=== PATIENT | female | born 1940 | race Caucasian/White ===

== ENCOUNTER → 2016-11-23 | Outpatient (CLI) | payer OTHER ==
[~2016-11-23] MED LIST: CALCIUM 500 +1 EAC4 PO; DICLOFENAC SODI75 M1 PO; DOCUSATE SODIU100 MG PO; FISH OIL 1,0001 EAC5 PO; MICARDIS HCT 81 EACH PO; MINOCYCLINE HC100 M2 PO; MULTIVITAMINS PO; NEXIUM40 MG PO; SENOKOT-S1 TA2 PO; SIMVASTATIN80 MG PO
== END ==
LOC: RAD 03:14
DX: Z12.31 Encounter for screening mammogram for malignant neoplasm of breast (principal)

== ENCOUNTER → 2018-11-29 | Outpatient (CLI) | payer OTHER | LOC: RAD 10:11 | DX: Z12.31 Encounter for screening mammogram for malignant neoplasm of breast (principal) ==

== ENCOUNTER 2020-09-26 14:21 | Emergency (ER) | payer OTHER ==
[~2020-09-26] VITALS: Ht 154.9 cm; Wt 56.7 kg
[2020-09-26 14:48] LABS: ABSOLUTE NEUTROPHILS 4.5 thou/uL (1.4-8.2); EOSINOPHILS 1.3 % (0.0-3.0); HEMATOCRIT 34.2 % (37.0-47.0); HEMOGLOBIN 11.1 gm/dL (12.0-15.0); LYMPHOCYTES 24.1 % (24.0-44.0); MCH 32.9 pg (26.0-34.0); MCHC 32.6 g/dL (28.0-37.0); MCV 101.1 fL (80.0-100.0); POLYS 68.6 % (36.0-66.0); RBC 3.38 mil/uL (4.20-5.00); RDW 12.7 % (10.5-14.5); WBC 6.5 thou/uL (4.0-11.0)
[2020-09-26 14:54] LABS: CALCIUM 9.8 mg/dL (8.5-10.1); CREATININE 1.5 mg/dL (0.6-1.0); POTASSIUM 4.3 mmol/L (3.5-5.1)
[2020-09-26 15:01] LABS: ALBUMIN 3.2 g/dL (3.4-5.0); TOTAL BILIRUBIN 0.7 mg/dL (0.2-1.0); TOTAL PROTEIN 6.3 g/dL (6.4-8.2)
[2020-09-26 15:41] LABS: LARGE PLATELETS OCCASIONAL
[2020-09-26 15:45] LABS: PLATELET COUNT 189 thou/uL (150-400)
[2020-09-26 15:48] VITALS: BP 164/69
[2020-09-26] MEDS ORDERED: PROTONIX40 MG PO (15:59)
== END 2020-09-26 16:20 ==
LOC: ER 14:21
PROVIDERS: Emergency Medicine
DX: K27.9 Peptic ulcer, site unspecified, unspecified as acute or chronic, without hemorrhage or perforation (principal); I10 Essential (primary) hypertension; E78.5 Hyperlipidemia, unspecified; Z79.899 Other long term (current) drug therapy

== ENCOUNTER 2020-10-23 11:52 | Emergency (ER) | payer OTHER ==
[~2020-10-23] VITALS: Ht 154.9 cm; Wt 54.4 kg
[~2020-10-23 11:52] MED LIST changes: +PROTONIX40 MG PO
[2020-10-23 12:52] LABS: URINE BILIRUBIN NEGATIVE (Negative); URINE BLOOD NEGATIVE (Negative); URINE CLARITY CLEAR; URINE COLOR YELLOW; URINE GLUCOSE-RANDOM* NEGATIVE (Negative); URINE KETONES TRACE (Negative); URINE LEUKOCYTES-REFLEX TRACE (Negative); URINE NITRITE-REFLEX POSITIVE (Negative); URINE PROTEIN (DIPSTICK) TRACE (Negative); URINE SPECIFIC GRAVITY >= 1.030 (1.005-1.035); URINE UROBILINOGEN 0.2 E.U./dl (0.2-1.0)
[2020-10-23 12:53] LABS: ABSOLUTE NEUTROPHILS 2.2 thou/uL (1.4-8.2); BASOPHILS 1.3 % (0.0-2.0); EOSINOPHILS 1.4 % (0.0-3.0); HEMOGLOBIN 10.6 gm/dL (12.0-15.0); LYMPHOCYTES 29.5 % (24.0-44.0); MONOCYTES 6.5 % (1.0-8.0); POLYS 61.3 % (36.0-66.0); RDW 12.7 % (10.5-14.5); WBC 3.5 thou/uL (4.0-11.0)
[2020-10-23 13:00] LABS: CALCIUM 9.5 mg/dL (8.5-10.1); CREATININE 1.7 mg/dL (0.6-1.0); POTASSIUM 3.3 mmol/L (3.5-5.1)
[2020-10-23 13:06] LABS: MAGNESIUM 1.3 mg/dL (1.8-2.4); TOTAL BILIRUBIN 0.8 mg/dL (0.2-1.0); TOTAL PROTEIN 5.7 g/dL (6.4-8.2)
[2020-10-23 13:09] LABS: CRYSTALS None Seen /LPF (None Seen); HYALINE CASTS 4-10 Moderate /LPF (None Seen); SQUAMOUS 0-3 Few /LPF (0-3); URINE RBC 0-2 Rare /HPF (0-2); URINE WBC-REFLEX 6-15 Few /HPF (0-5)
[2020-10-23 13:10] LABS: WBC CLUMPS Few (None Seen)
[2020-10-23 13:23] LABS: LARGE PLATELETS SEVERAL; PLATELET COUNT 125 thou/uL (150-400); PLATELET ESTIMATE SLIGHTLY DECREASED
[2020-10-23] MEDS ORDERED: CARBIDOPA-LEVO1 EAC9 PO (17:33)
[2020-10-23] MEDS ORDERED: CARBIDOPA-LEVO1 EAC7 PO (17:33)
[2020-10-23] MEDS ORDERED: PROTONIX40 M4 PO (17:35)
[2020-10-23] MEDS ORDERED: ASA81BEC PO (17:36)
[2020-10-23 20:12] VITALS: BP 128/75
[2020-10-23] MEDS ORDERED: VOLTAREN100 GM PO (21:19)
--- NOTE | 2020-10-26 07:16 | EKG ---
[address] [place] [address] ELECTROCARDIOGRAM REPORT Name: YELITZA DAVIS [id number] Admission: 10/23/20 Attend Phys: Discharge: 10/23/20 Date of : 44 Report #: [id number] [facility] ED Test Date: 2020-10-23 Test Time: 14:04:42 Pat Name: YELITZA DAVIS Department: Room: Gender: F Supervisor [employer] Processing: : 1940 Requested By: Maya Mejias Order Number: [id number] MD: Getachew Oh Measurements Intervals [place] Rate: 78 P: 61 VT: 137 QRS: -16 QRSD: 99 T: 73 QT: 401 QTc: 457 Interpretive Statements Sinus rhythm Probable left atrial enlargement Borderline left axis deviation No previous ECG available for comparison Electronically Signed On 10-26-2020 7:16:02 CDT by Getachew Oh [email or web address] <ELECTRONICALLY SIGNED> By: Getachew Oh MD, [facility] 10/26/20 0716 1404 1404 Getachew Oh MD, FACC /EPI
== END 2020-10-23 20:12 ==
LOC: ER 11:52
PROVIDERS: Nurse Practitioner Family
DX: N39.0 Urinary tract infection, site not specified (principal); F32.9 Major depressive disorder, single episode, unspecified; E87.6 Hypokalemia; E83.42 Hypomagnesemia; I10 Essential (primary) hypertension; E78.5 Hyperlipidemia, unspecified; Z79.899 Other long term (current) drug therapy; Z79.82 Long term (current) use of aspirin; Z20.822 Contact with and (suspected) exposure to COVID-19

== ENCOUNTER 2020-10-23 20:32 | Inpatient (IN) | payer OTHER ==
[~2020-10-23] VITALS: Ht 154.9 cm; Wt 57.7 kg
[2020-10-23 20:30] VITALS: BP 110/67
[~2020-10-23 20:32] MED LIST changes: +ASA81BEC PO; +CARBIDOPA-LEVO1 EAC7 PO; +CARBIDOPA-LEVO1 EAC9 PO; +PROTONIX40 M4 PO
[2020-10-23] MEDS ORDERED: VOLTAREN100 GM PO (21:19)
--- NOTE | 2020-10-23 23:40 | NUR ---
ADMITTED FROM ED. PT LIVES ALONE IN [facility] AT [facility]. PTS SISTER REPORTED PT HAS BEEN HAVING INCREASED PROBLEMS WITH MEMORY. PT FOUND TO HAVE UTI, LOW POTTASIUM AND LOW MAGNESIUM. RECEIVED IV ANTIBIOTIC, FLUIDS, REPLACEMENT IN ED. PT PRESENTED TO UNIT. AOX4. GLASSES ON, WATCH ON. HAIR UNKEMPT. UNSTEADY GAIT. MED HX PARKINSONS, ARTHRITIS, DEPRESSION. PT HAD FOOD IN ED, DECLINED HS SNACK. PT COMPLIANT WITH MEDICATIONS. GOOD EYE CONTACT FLAT AFFECT. PT REPORTED HX OF SUICIDAL IDEATION WHEN SHE WAS IN HER 30'S. PT DENIES CURRENT SI. DR MURRAY CONTACTED RE ADMISSION. HOSPITALIST CONSULTED WITH PT. BED ALARM ON.
[2020-10-24 05:42] LABS: CALCIUM 9.3 mg/dL (8.5-10.1); CREATININE 1.3 mg/dL (0.6-1.0); POTASSIUM 3.7 mmol/L (3.5-5.1)
[2020-10-24 08:00] VITALS: BP 129/67
--- NOTE | 2020-10-24 08:54 | NUR ---
PT SITTING OUT IN DINING ROOM PICKING AT HER FOOD. PT MAKING CONVERSATION WITH ANOTHER PEER. PT DENIES ANY PAIN. PT TOOK MEDS THIS AM WITHOUT ANY ISSUES. NO SI IDEATION AT THIS TIME. PT UP WITH ASSISTANCE DUE TO UNSTEADY GAIT. PT IS CALM AND COOROPERATIVE WITH STAFF.
[2020-10-24 09:19] VITALS: BP 129/67
--- NOTE | 2020-10-24 11:24 | NUR ---
SHE CAME TO R.T. THIS MORNING. SHE SAT ON THE PERIPHERAL OF THE GROUP BUT LISTENED AND WAS COOPERATIVE. SHE WAS NOT DISRUPTIVE AT ALL. SHE IS NEW TO THE [facility].
[2020-10-24 12:06] LABS: FOLIC ACID 31.3 ng/mL (8.6-58.9)
--- NOTE | 2020-10-24 16:18 | NUR ---
Patient assessment was completed with patient and doctor. Treatment plan completed.
--- NOTE | 2020-10-24 18:00 | NUR ---
PT HAS A GOOD DAY TODAY. PT HAS SPOKEN TO FAMILY ON THE PHONE. PT PARTICIPATING IN GROUP AND EATING MEALS.
[2020-10-24 19:00] VITALS: BP 106/66
[2020-10-25 00:10] VITALS: BP 129/67
--- NOTE | 2020-10-25 00:17 | NUR ---
Assumed care on 10/24/20 @ 1900, seated in the day room by herself at a table watching TV. A&Ox3, could not give the date or day of the week, but knew the year and month. Flat affect noted. Compliant with medication administration, taking p.o. meds whole with water. Retired to bed @ HS. Bed in low position.
[2020-10-25 08:30] VITALS: BP 157/77
--- NOTE | 2020-10-25 08:41 | NUR ---
PT OUT IN DINING ROOM EATING BREAKFAST. PT DID EAT SOME EGGS AND A BITE OF [place] TOAST. PT TOOK MEDS THIS AM WITH WATER. PT STATED SHE JUST WANTS TO REST TODAY. PT IS SOCIAL WITH OTHER PEERS AND STAFF WHEN SPOKEN TOO.
[2020-10-25 09:02] VITALS: BP 157/77
--- NOTE | 2020-10-25 09:55 | NUR ---
TALKED TO SISTER GAMA ON THE PHONE. SHE STATED THAT THERE IS DEPRESSION IN BOTH SIDES OF THE FAMILY. SHE SAID THAT YELITZA IS TEARFUL WHEN THEY TALK ON THE PHONE. SHE MENTIONED THAT SHE TAKES EFFEXOR AND IT HELPS WITH HER DEPRESSION. SHE IS BRINGING IN SWEATERS FOR HER TO WEAR AND A HOME MEDICATION THAT WAS NOT ON THE MED REC. SHE ALSO SAID WHEN HER SISTER IS DISCHARGED SHE HAS 24 HOUR CARE FROM AN INDIVIDUAL NAMED ALFONSO JUAREZ.
[2020-10-25] MEDS ORDERED: [UNRECOGNIZED DRUG - OTHER] PO (12:53)
--- NOTE | 2020-10-25 13:30 | NUR ---
GAMA DROPPED OFF A COUPLE OF SHIRTS AND DPOA PAPERWORK, NOW IN THE CHART.
[2020-10-25 19:52] VITALS: BP 129/71
[2020-10-26 00:03] VITALS: BP 129/71
--- NOTE | 2020-10-26 00:27 | NUR ---
Assumed care on 10/25/20 @ 1900, ambulating the hallways with a walker and sitting on a couch in the day room watching TV and socializing with female peers. Received a phone call from friend, which she elected to return. Cooperative with assessment and compliant with medications. HRRR, Lungs CTA bilat, ABD N bowel sounds, BM today 10/25. A&Ox3, not able to give the date, but knew the month. Retired to bed @ HS, eyes closed respirations even and unlabored. Bed in low position.
[2020-10-26 09:21] VITALS: BP 140/79
[2020-10-26 10:12] VITALS: BP 140/79
[2020-10-26 10:23] LABS: HEMATOCRIT 34.3 % (37.0-47.0); HEMOGLOBIN 11.4 gm/dL (12.0-15.0); MCH 33.2 pg (26.0-34.0); MCHC 33.2 g/dL (28.0-37.0); MCV 100.2 fL (80.0-100.0); RBC 3.43 mil/uL (4.20-5.00); RDW 13.2 % (10.5-14.5); WBC 4.8 thou/uL (4.0-11.0)
--- NOTE | 2020-10-26 11:35 | NUR ---
Assess due to new admit to [facility] for depression and UTI. On regular diet eating 75-100% meals. No reports of wt loss, BMI adequate. Labs/meds reviewed, and pt is low nutrition risk
--- NOTE | 2020-10-26 13:43 | NUR ---
PATIENT CARE ASSUMED 0700 - PATIENT IN DINING [place]COSTA - RESPONSIVE TO QUESTIONS ADDRESSED TO HER. DENIES ANY S/I OR H/I - PLEASANT - COOPERATIVE. NO PAIN DISCOMFORT WHEN ASSESSED. MAKES NEEDS KNOWN. GOOD APPETITE 50 PERCENT OF MEALS. ALERT AND ORIENTED X 3 - AFFECT BLUNTED AND FLAT AT TIMES BUT DID SMILE WHEN COMPLIMENT GIVEN ON HAIR. VITALS HAS BEEN STABLE. MEDICATION COMPLIANT - TAKES PILLS WITH NO DIFFICULTY. PARTICIPATED IN MORNING GROUP AND AFTERNOON ACTIVITIES. UP IN DINING ACOSTA MOST OF THE DAY.
[2020-10-26 18:06] LABS: SYPHILIS AB Non Reactive (Non Reactive)
[2020-10-26 19:30] VITALS: BP 107/69
[2020-10-26 20:20] VITALS: BP 107/69
--- NOTE | 2020-10-27 03:10 | NUR ---
PATIENT WAS SITTING ALONE IN DINING ROOM AND QUIET AND WITHDRAWN THIS EVENING. SHE BEGAN CRYING WHEN ANOTHER PATIENT BEGAN YELLING OUT IN THE DINING ROOM. I BELIEVE THIS MADE HER ANXIOUS. SHE BEGAN CRYING AND SAID SHE WANTED TO GO HOME TONIGHT. SHE STATED SHE WANTED TO TALK TO HER FAMILY AND I ASKED HER IF I COULD CALL SOMEONE AND SHE STATES, "THEY ARE ALL ." SHE STATES HER SISTER IS ALIVE BUT DIDN'T WISH TO TALK WITH HER. PT CRIED SOFTLY IN BED BUT CALMED WITH 1:1 INTERACTION AND CONSOLING. PATIENT A/0X3. PATIENT TOOK HER MEDS WHOLE WITH WATER. NO SI/HI/AVH AT THIS TIME BUT IS DEPRESSED. PATIENT DENIES PAIN. PT AMBULATES WITH STEADY GAIT. ROUTINE ROUNDS TO ASSESS SAFETY AND STATUS OF PATIENT. BED IN LOW POSITION.
[2020-10-27 09:30] VITALS: BP 148/73
--- NOTE | 2020-10-27 10:23 | NUR ---
0700 ASSUMED CARE OF PATIENT, PATIENT IN BED AT THAT TIME. PATIENT TO DAYROOM FOR BREAKFAST. DOES NO EAT ANY BREAKFAST STATES "DOES NOT LIKE THE FOOD". MEDICATION TAKEN WHOLE WITHOUT DIFFICULTY. PATIENT IS QUIET WITH FLAT AFFECT. APPERARS TO BE SAD AT THAT TIME. PATIENT PRESENT IN GROUP. 1000 SPOKE WITH PATIENT, PATIENT QUIET AND SOFT SPOKEN. NO C/O PAIN. BS ACTIVE. VS 148/73, 78, 16, 97.1, 96%. PATIENT DENIES SI. WHEN ASKED ABOUT HALLUCINATIONS PATIENT STATES "WELL I SAW THE THING THIS MORNING" PATIENT UNABLE TO EXPLAIN THE THING AND LATER SAYS "SOMEONE HAD TO HAVE BEEN IN MY ROOM THERE WAS PEE ON THE FLOOR, I DID NOT SEE WHO DID IT". PATIENT CONFUSED AND DOES NOT MAKE SENSE WHEN EXPLAINING WHAT SHE SAW OR DID NOT SEE. PATIENT C/O INCREASED ANXIET AND DEPRESSION STATING "IF I CAN LEAVE TO A FAMILIAR PLACE I WOULD NOT BE DEPRESSED OR ANY ANXIETY". PATIENT TEARY-EYED WHEN TALKING ABOUT LEAVING AND WANTING TO GO WHERE HER SISTER IS SETTING UP A HOME FOR HER. STATES "MY SISTER IS HERE VISITING AND GETTING MY PLACE READY, I JUST HAVE NO IDEA WHEN IM LEAVING". WILL CONTINUE TO OBSERVE
--- NOTE | 2020-10-27 14:15 | NUR ---
Yesterday, YONNY and Dr. Pollard spoke with pt's daughter and DPOA Jessie Borjas ([phone]). [place] wanted [place] back [place] and said that pt will have staff to care for her 13/02 beginning the . YONNY explained that pt cannot be released to an unsafe environment and she is not safe in an [place]; YONNY suggested respite care. Jessie is of the opinion that pt can be skilled. Dr. Pollard said he will have pt assessed for skillable criteria. Today Jessie contacted YONNY and asked she send a referral to [facility] for respite. YONNY faxed a referral to [facility] for respite care. YONNY team will continue to follow pt during her stay on this unit.
[2020-10-27 19:11] VITALS: BP 120/63
[2020-10-27 19:30] VITALS: BP 120/63
--- NOTE | 2020-10-27 19:39 | H ---
[facility] [place] [address] HISTORY AND PHYSICAL Name: YELITZA DAVIS Room #: 525B-B ADM IN M.R.#: [id number] Admission: 10/23/20 Attend Phys: Sarabjit Pollard DO Discharge: Date of : 44 Report #: [id number] THIS REPORT FOR: cc: Venancio Lee MD, Eric K. MD Kerstein,Sarabjit Alejandra DO ~ DATE OF SERVICE: 10/24/2020 INPATIENT PSYCHIATRIC EVALUATION ATTENDING PSYCHIATRIST: Sarabjit Pollard DO. MEDICAL CONSULTANTS: Dr. Amber Mendez and Dennys Howard MD and his hospitalist team. REASON FOR ADMISSION: Depression and cognitive evaluation. SOURCES OF INFORMATION: Interview with the sister in the Emergency Room, her name is Lyudmila, interview with the patient in my office, ER records and chart review. HISTORY OF PRESENT ILLNESS: This is a 80-year-old female, for approximately 13 years. She presented with the ED at the begging of her sister and [id number]. They stated that the patient was coming up with weird stuff when she talks. She denied SI, auditory or visual hallucinations. She endorses intermittent abdominal pain, shortness of air with exertion. The sister was concerned about her mental status and physical health. Her sister lives in [place] and flew to town to visit her. Over the 2 weeks prior to ER presentation, her phone conversations have seemed different than in the past. A lot of what the patient tells is confusing and sometimes she does not make sense. In the past several months, she has lost a lot of weight. Recently, she is not eating or drinking as much. She has her meals prepared and brought to her. She reportedly had an EGD and a colonoscopy 2 days ago, which was read as normal. The ED found urinalysis concerning for UTI. Mag was low at 1.3, potassium 3.3, BUN 27, creatinine 1.7. She did receive fluids in the ER. CT of head shows no acute intracranial abnormalities. The patient resides in independent living at [facility]. She has been affected by the events of the pandemic the last year. Apparently, she had her second COVID vaccine around the time symptoms started. PAST MEDICAL HISTORY: Includes hypertension and high cholesterol. She has history of a Staph infection, was on oral antibiotics last in fall 2008, arthritis, breast biopsies x 2. PAST SURGICAL HISTORY: Bilateral carpal tunnel release and tonsillectomy. [facility] [address] [place] [address] HISTORY AND PHYSICAL Name: YELITZA DAVIS Room #: 525B-B [facility] IN ..#: [id number] Admission: 10/23/20 Attend Phys: Sarabjit Pollard, DO Discharge: Date of : 44 Report #: [id number] MEDICATIONS: Telmisartan/hydrochlorothiazide 80/12.5 one each daily, simvastatin 80 mg p.o. at bedtime, multivitamin p.o. daily, senna docusate 1 tab p.o. daily, omega 3 fish oil 6000 p.o. b.i.d., carbidopa/levodopa 25/100 one tablet 4 times a day and 50/200 p.o. at bedtime, pantoprazole 40 mg p.o. daily, aspirin 81 mg oral daily. ALLERGIES: No known allergies. SOCIAL HISTORY: Denied tobacco, alcohol or recreational drug use. DEVELOPMENTAL HISTORY: Born in [place], [place], raised in the same area. She has had several siblings. Denies history of dementia in the family. 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 A 10-point ER review of systems was negative except for the weight loss and confusion. The patient received a [facility] Mental Status examination, she scored 7/30. Deficits were grossly deficient in memory, executive function, verbal fluency and speech were relatively preserved. Weight 54.43 kilos. LABORATORY DATA: EKG showed normal sinus rhythm, rate of 78, no STEMI, leftward axis, AR interval is 137, QTc 457. Geriatric depression scale was administered. The patient scored a +8, which is significant for depression. Laboratories from the ER, hematology, H and H 10.6 and 32.0, white count leukopenic at 3.5, platelet count 125, slightly thrombocytopenic. Electrolytes: Sodium 145, potassium 3.7, chloride 110, bicarbonate 26, anion gap 9, BUN 21, creatinine 1.3, estimated GFR 40, glucose 86, calcium 9.3, magnesium level 1.3, total bilirubin 0.8, AST 15, ALT 7, alkaline phosphatase 44, total protein 5.7, albumin 3.0, lipase was from 09/26. Vitamin B12 on 10/24/2020 was 651, which is normal. Folate 31.3, which is normal. TSH 0.703. Urinalysis showed moderate bacteria, hyaline casts, few wbc's, positive nitrites, trace ketones and protein. COVID-19 PCR was negative. She is on antibiotics and urine culture was not done. Therefore, I do not think it is useful to get a culture at this time. She has been treated with Keflex. I have ordered TSH, vitamin D, syphilis. Folate and B12 were completed today and TSH result at 0.703. Vitamin D is still pending as is the syphilis serology. MEDICATIONS IN THE HOSPITAL: Currently getting magnesium oxide 400 mg p.o. b.i.d., atorvastatin 20 mg p.o. daily, carbidopa/levodopa 25/100 strength 1 tab with meals and believes she was given 50/200 at bedtime, Keflex 500 mg p.o. b.i.d., normally a 10-day course of that, otherwise house PRN's. PHYSICAL EXAMINATION: VITAL SIGNS: Today, temperature 36.4, pulse 74, respirations 18, BP 129/67, O2 [facility] [address] [place] [address] HISTORY AND PHYSICAL Name: YELITZA DAVIS Room #: 525B-B ADM IN .R.#: [id number] Admission: 10/23/20 Attend Phys: Sarabjit Pollard, Discharge: Date of : 42 Report #: [id number] sat 97%. MUSCULOSKELETAL: Slow gait. Normal station. Wearing glasses, frail appearing, BMI 22.8. MENTAL STATUS EXAMINATION: Attention limited. Concentration limited. Speech soft, normal rate. Thought process: Linear and goal directed. Thought content, relative poverty of thought. No psychomotor agitation, some psychomotor retardation. Mood and affect, little bit anxious, but generally euthymic, congruent, fair range. Denied SI or HI. Denied auditory, visual, or tactile hallucinations. Denied hopeless, helplessness. Memory grossly impaired as described and somnolent. Insight impaired, judgment limited. Fund of knowledge below average. FORMULATION: A 80-year-old female brought in for concerns of depression and cognitive impairment. DIAGNOSES: At this time, major neurocognitive disorder, likely Alzheimer's etiology without behavioral disturbance, unspecified depression. The patient has a probable urinary tract infection, being treated by the hospitalist. PLAN: Continue current hospital medications. Evaluate, stabilize. I will reach out to her sister and double check if she had any neuropsych testing. We will see if there is a dramatic change in cognition. If not, this will likely need to be at memory care placement for this patient. ESTIMATED LENGTH OF STAY: 10-14 days. STRENGTHS: She is insured, family support. WEAKNESSES: Advancing age, medical morbidities. Time spent on this case is at least 60 minutes, greater than 50% of time was review of records, coordination of care. <ELECTRONICALLY SIGNED> By: Sarabjit Pollard DO 10/27/20 1939 1238 1511 Sarabjit Pollard, /nt
--- NOTE | 2020-10-28 02:49 | NUR ---
PT WAS UP AND OUT WALKING AT BEGINNING OF THE SHIFT. SHE HAD GONE BACK TO HER ROOM WHERE I MET UP WITH PATIENT. SHE WAS CALM, PLEASANT, AND RELAXED. AT THIS TIME SHE WAS ORIENTED X 3. WAS NOT CONFUSED AND WAS SMILING AND APPROPRIATE INGAGEMENT IN CONVERSATION. THEN 2 HOURS LATER PATIENT WALKED OUT OF ROOM WITH WALKER AND WAS CONFUSED AND WANTING TO KNOW WHERE EVERY ONE WAS. THIS WAS 2129. I EXPLAINED EVERYONE WAS GETTING READY FOR BED. SHE WAS IRRITABLE AND PARANOID AND CONFUSED. OFFERED TO HAVE HER COME TO DINING ROOM AND WATCH TV TILL 2199. SHE REFUSED TO BUT WALKED AROUND THE UNIT AND THEN BACK TO BED. SHE HAS BEEN IN BED SINCE THEN WITH EYES CLOSED. BED IN LOW POSITION AND BED ALARM IS ON. PATIENT DENIES PAIN/SI/AVH. ROUTINE ROUNDS TO ASSESS SAFETY AND STATUS OF PATIENT.
[2020-10-28 11:07] VITALS: BP 133/73
--- NOTE | 2020-10-28 14:48 | NUR ---
YONNY spoke with Hellen at [facility] who said she is reviewing pt's referral and will get back to YONNY. SW team will continue to follow pt during her stay on this unit.
--- NOTE | 2020-10-28 18:45 | NUR ---
0700 ASSUMED CARE OF PATIENT. PATIENT AMB TO DAYROOM FOR BREAKFAST. PATIENT CALM AND COOPERATIVE. MEDICATIONS TAKEN WITHOUT DIFFICULTY. NO C/O PAIN, LS CLEAR, BS ACTIVE. DENIES SI/HI. COVID TEST COMPLETED TODAY PER DR'S ORDER. NO BM SINCE 10/25/20, PATIENT STATES " I TAKE MIRALAX EVERY DAY AND IT TAKES A FEW DAYS TO HAVE ONE WHICH USUALLY RESULTS IN LOOSE STOOLS". PATIENT DENIES DISCOMFORT AND NO ABD PAIN. ABD SOFT AND FLAT. PATIENT LYING IN BED RESTING AT THIS TIME.
[2020-10-28 19:31] VITALS: BP 108/53
--- NOTE | 2020-10-29 02:01 | NUR ---
UPON SHIFT REPORT, PT SLEEPING IN ROOM. UPON SHIFT ASSESSMENT, PT AOX3, TO PERSON, PLACE, AND TIME. PT NOTABLY LETHARGIC. PT DENIES SI/HI. NO BEHAVIORS OF CONCERN OBSERVED. PT COMPLIANT WITH PLAN OF CARE, COOPERATIVE WITH STAFF. PT DENIES PAIN AND SOB WHILE ON ROOM AIR. PT TOLERATING PO INTAKE OF FLUIDS AND REGULAR DIET WITHOUT ISSUE. PT WITHOUT NAUSEA OR EMESIS. PT RESTING IN BED THROUGHOUT SHIFT, AMBULATING WITH WALKER, VOIDING PER BSC OR TOILET. PT ENCOURAGED TO NOTIFY STAFF FOR ALL NEEDS, BED ALARM ON, BED LOCKED IN LOWEST POSITION, FREQUENT MONITORING WILL CONTINUE.
[2020-10-29 05:54] LABS: CALCIUM 9.3 mg/dL (8.5-10.1); CREATININE 1.2 mg/dL (0.6-1.0)
[2020-10-29 10:04] VITALS: BP 157/76
[2020-10-29] MEDS ORDERED: SEROQUEL 25 MG25 M1 PO (10:36)
[2020-10-29] MEDS ORDERED: SINEMET 25-1001 EAC1 PO (10:38)
[2020-10-29] MEDS ORDERED: VITAMIN D325 MC1 PO (10:39)
[2020-10-29] MEDS ORDERED: MIRALAX17 GM PO (10:39)
[2020-10-29] MEDS ORDERED: MAGNESIUM400 MG PO (10:39)
[2020-10-29] MEDS ORDERED: KEFLEX500 M1 PO (10:42)
--- NOTE | 2020-10-29 13:08 | NUR ---
0700 ASSUMED CARE OF PATIENT, PATIENT IN ROOM AT THAT TIME. PATIENT OUT TO DAYROOM AMB WITH WALKER WITH STEADY GAIT. PATIENT ATE 90% OF BREAKFAST. MEDICATIONS TAKEN WHOLE WITHOUT DIFFICULTY. VS 157/76 69 16 97.3 96% LS CLEAR, BS ACTIVE. LBM 10/25/20 ABD SOFT AND FLAT NO C/O DISCOMFORT. PATIENT DC'D AT 1115 WITH FACILITY TRANSPORT. BELONGINGS IN HAND. DAIGHTER HER WITH FACILITY TO ASSIST IN TRANSPORT. PATIENT TEARY EYED WHEN LEAVING. 1145 REPORT CALLED TO FACILITY AND SPOKE WITH BOB.
--- NOTE | 2020-10-31 13:01 | D ---
[facility] [place] [address] DISCHARGE SUMMARY Name: YELITZA DAVIS Room #: 525B-B DIS IN M.R.#: [id number] Admission: 10/23/20 Attend Phys: Sarabjit Pollard DO Discharge: 10/29/20 Date of : 44 Report #: [id number] THIS REPORT FOR: cc: Venancio Lee MD, Eric K. MD Kerstein, Andrew H. DO ~ DATE OF SERVICE: 10/29/2020 INPATIENT PSYCHIATRIC DISCHARGE SUMMARY ATTENDING PSYCHIATRIST: Sarabjit Pollard DO. CLOAK ROOM ATTENDANT: Zacarias Olguin MD DISCHARGE DIAGNOSES: Major neurocognitive disorder, likely due to Alzheimer's disease. Additional comorbidities are unspecified anxiety, Parkinson's disease, urinary tract infection, magnesium deficiency, vitamin D deficiency. DISCHARGE PLAN: The patient is being discharged to [facility] for longterm stay. Psychiatric and medical care to be provided by receiving facility. diet: regular DISCHARGE MEDICATIONS: Diclofenac sodium 75 mg twice daily, simvastatin 80 mg oral daily at bedtime, multivitamin oral daily, carbidopa/levodopa 50/200 at bedtime, pantoprazole 40 mg oral daily, carbidopa/levodopa 25/100 mg oral with meals, Seroquel 25 mg oral daily at 1400 and 2100 for anxiety and sundowning, polyethylene glycol 17 g oral twice daily, vitamin D3 5000 international units oral daily, Keflex 500 mg oral twice daily for 8 more doses. LABORATORY DATA: Significant laboratories this admission, most recent CBC on 10/26/2020, H and H 11.4 and 34.3, white count 4.8, platelet count 136. Chemistries on 10/29/2020, sodium 144, potassium 4.0, bicarbonate 29, anion gap 4, BUN 24, creatinine 1.2, otherwise normal electrolytes, B12 was low at 26.8. TSH normal at 0.703. Folate 31.3, vitamin B12 651. REASON FOR ADMISSION: Back on the or so october, a 80-year-old female presented to the ED with her sister and [id number]. The patient was coming up with unusual comments over the phone. Sister had flown in from [place], was concerned, she had developed dementia. HOSPITAL COURSE: The patient was admitted to Geriatric Psychiatry Unit. The patient was found to have E. coli UTI, Keflex was started. Given her Parkinson's disease, I elected to start Seroquel for ing. I have deferred initiation for cognitive enhancer to outpatient. Her mood improved. She was seen by PT, [address] [address] DISCHARGE SUMMARY Name: YELITZA DAVIS Room #: 525B-B [facility] IN M.R.#: [id number] Admission: 10/23/20 Attend Phys: Sarabjit Pollard, Discharge: 10/29/20 Date of : 44 Report #: [id number] OT, did have significant gait deficit, felt to benefit from skilled therapy. The patient will need 24-hour assistance after skilled. This will probably be provided from [facility]. PHYSICAL EXAMINATION: VITAL SIGNS: On the day of discharge, temperature 36.3, pulse 59, respirations 16, BP 157/77, O2 sat 96%. MUSCULOSKELETAL: Assisted gait with walker. MENTAL STATUS EXAMINATION: This is a well-developed female, wearing glasses, appearing stated age. Attention limited. Concentration limited. Speech is normal rate, volume and tone. Thought process is linear and goal directed. Thought content focused on discharge. No psychomotor agitation. No psychomotor retardation. Denied SI or HI. Denied auditory, visual, or tactile hallucinations. Memory formally tested early in admission with SLUMS, the patient scored I believe 17 out of 30. Insight limited. Judgment limited. Fund of knowledge, no greater than average. PROGNOSIS: For this patient is guarded given age of 80 and having a neurodegenerative disorder and Parkinson's disease. <ELECTRONICALLY SIGNED> By: Sarabjit Pollard DO 10/31/20 1301 48 04 Sarabjit Pollard DO /nt
== END 2020-10-29 11:15 | DRG 57 ==
LOC: SBH 20:32
PROVIDERS: Hospitalist; Nurse Practitioner Family; ADMIT Psychiatry & Neurology Psychiatry; ATTEND Psychiatry & Neurology Psychiatry
DX: G30.9 Alzheimer's disease, unspecified (principal); F02.81 Dementia in other diseases classified elsewhere, unspecified severity, with behavioral disturbance; N17.9 Acute kidney failure, unspecified; N39.0 Urinary tract infection, site not specified; D61.818 Other pancytopenia; F01.51 Vascular dementia, unspecified severity, with behavioral disturbance; F32.9 Major depressive disorder, single episode, unspecified; I10 Essential (primary) hypertension; E78.00 Pure hypercholesterolemia, unspecified; E78.5 Hyperlipidemia, unspecified; M19.90 Unspecified osteoarthritis, unspecified site; E83.42 Hypomagnesemia; G20 Parkinson's disease; Z20.822 Contact with and (suspected) exposure to COVID-19; B96.20 Unspecified Escherichia coli [E. coli] as the cause of diseases classified elsewhere; Z79.899 Other long term (current) drug therapy; Z87.11 Personal history of peptic ulcer disease
CPT/HCPCS: 10880

== ENCOUNTER → 2020-12-16 | Outpatient (CLI) | payer OTHER ==
[~2020-12-16] MED LIST changes: +KEFLEX500 M1 PO; +MAGNESIUM400 MG PO; +MIRALAX17 GM PO; +SEROQUEL 25 MG25 M1 PO; +SINEMET 25-1001 EAC1 PO; +VITAMIN D325 MC1 PO; +VOLTAREN100 GM PO; +[UNRECOGNIZED DRUG - OTHER] PO
== END ==
LOC: RAD 10:29 → BC 13:43
PROVIDERS: ATTEND Internal Medicine
DX: Z12.31 Encounter for screening mammogram for malignant neoplasm of breast (principal)

== ENCOUNTER → 2020-12-23 | Outpatient (CLI) | payer OTHER | LOC: ULTRA 13:50 | PROVIDERS: ATTEND Internal Medicine | DX: N63.24 Unspecified lump in the left breast, lower inner quadrant (principal); N64.59 Other signs and symptoms in breast; N63.10 Unspecified lump in the right breast, unspecified quadrant ==

== ENCOUNTER → 2020-12-31 | Outpatient (CLI) | payer OTHER ==
--- NOTE | 2021-01-04 13:08 | PATH ---
[facility] [place] [address] PATHOLOGY RPT PROCEDURE Name: DAHLIA DAVIS Room #: REG [facility] M.R.#: [id number] Admission: 12/31/20 Date of : 44 Discharge: Report #: [id number] Path Case #: [id number] [facility] Accession Number: [id number] . 01 Material submitted: . PART A: breast - RIGHT BREAST 11 O'CLOCK 4CM FN. Modifiers: right, 11:00, 4CM FN PART B: breast - LEFT BREAST 6 O'CLOCK 3CM FN. Modifiers: left, 6:00, 3CM FN . 01 Clinical history: . US/MAMMOTOME BREAST BIOPSY/BILAT BREAST NODULES A: COLLECTED 1145AM, FORMALIN 1145AM B: COLLECTED 1120AM, FORMALIN 1130AM . BILAT BREAST MASSES . 02 Diagnosis: A. Right breast, 11:00, 4 cm from nipple, ultrasound guided needle core biopsy: - Mature adipose tissue. - No definite breast tissue present. - Negative for hyperplasia, atypia or malignancy. . B. Breast, left breast 6:00, 3 cm from nipple, ultrasound guided needle core biopsy: - Benign breast tissue with proliferative fibrocystic changes including stromal fibrosis, dilated ducts and columnar cell change. - Calcifications identified within columnar cell change (benign breast tissue). - Negative for atypia or malignancy. . (IUV:electronic publisher; 01/01/2021) MBR 01/01/2021 1218 Local . 02 Electronically signed: . Mercedez Schaffer MD, Pathologist NPI- [id number] . 01 Gross description: . A. Received in formalin labeled "Dahlia Roberson and red breast 11:00 4 cm FN". Received are 2 white-yellow fibroadipose breast tissue cores ranging from 1.0-1.2 cm in length and 0.1-0.2 cm in diameter. The specimen is entirely submitted in cassette A1. The specimen was collected 12/31/2020 at 1145 hours and placed in the formalin at 1145 hrs. The specimen will be in formalin more than 6 hours and less than 72 hours. . [facility] [address] [place] [address] PATHOLOGY RPT PROCEDURE Name: DAHLIA DAVIS Room #: REG CLI Kane#: [id number] Admission: 12/31/20 Date of : 44 Discharge: Report #: [id number] Path Case #: [id number] B. Received in formalin labeled "Shippers, Dhalia and left breast 6:00 3 cm FN". Received are 3 white-yellow fibroadipose breast tissue cores ranging from 1.8-2.3 cm in length and 0.3-0.4 cm in diameter. The specimen is entirely submitted in cassette B1. The specimen was collected 12/31/2020 at 1120 hours and placed in formalin at 1130 hours. The specimen will be in formalin more than 6 hours and less than 72 hours.([facility]; 12/31/2020) J/[facility] 12/31/2020 1546 Local . 02 Pathologist provided ICD-10: N60.12, N60.32, N63.10, N63.20 . 02 CPT . 215975, 123831 Specimen Comment: A courtesy copy of this report has been sent to [phone], [phone] Specimen Comment: [id number] Specimen Comment: Report sent to / DR BONDS Specimen Comment: Report sent to Performed at: [address] [facility], [place] [id number] MD Rober Lofton MD Phone: [phone] Performed at: [address] [facility] [id number] MD Mecredez Schaffer MD Phone: [phone]
== END ==
LOC: ULTRA 09:48
PROVIDERS: ATTEND Internal Medicine
DX: N60.32 Fibrosclerosis of left breast (principal); N64.89 Other specified disorders of breast; R92.1 Mammographic calcification found on diagnostic imaging of breast; F32.9 Major depressive disorder, single episode, unspecified; Z98.890 Other specified postprocedural states; Z79.899 Other long term (current) drug therapy